=== PATIENT | female | born 1995 | race African-American/Black ===

== ENCOUNTER 2020-08-31 01:13 | Emergency (ER) | payer OTHER ==
[2020-08-31] MEDS ORDERED: MOTRIN600 MG PO (02:03)
== END 2020-08-31 02:20 | disposition home or self-care (01) ==
LOC: FER 01:13
DX: S71.111A Laceration without foreign body, right thigh, initial encounter (principal); W26.0XXA Contact with knife, initial encounter; Y92.009 Unspecified place in unspecified non-institutional (private) residence as the place of occurrence of the external cause

== ENCOUNTER 2020-11-06 15:28 | Emergency (ER) | payer OTHER ==
[~2020-11-06 15:28] MED LIST: MOTRIN600 MG PO
[2020-11-06 17:03] LABS: BILIRUBIN NEGATIVE (NEGATIVE); BLOOD NEGATIVE Ery/uL (NEGATIVE); CLARITY CLEAR (CLEAR); COLOR YELLOW (YELLOW); GLUCOSE (U) NORMAL (NORMAL); LEUKOCYTES TRACE Leu/uL (NEGATIVE); NITRITE NEGATIVE (NEGATIVE); PROTEIN NEGATIVE (NEGATIVE); UROBILINOGEN 0.2 mg/dL (0.2-1.0); pH 7.5 (5.0-9.0)
[2020-11-06 17:34] LABS: BACTERIA 1+; MUCOUS TRACE
[2020-11-06 18:07] LABS: BASOPHIL 0.4 % (0-2); EOSINOPHIL 0.4 % (0-5); HCT 36.3 % (37.0-47.0); LYMPHOCYTE 17.6 % (15-48); MCH 27.7 pg (25.0-31.0); MCHC 33.1 g/dL (32.0-36.0); MCV 83.8 fL (78.0-100.0); MONOCYTE 5.2 % (0-12); MPV 10.6 fL (6.0-9.5); NRBC 0; PLT 331 K/uL (150-400); RBC 4.33 M/uL (4.20-5.40); RDW 13.7 % (11.5-14.0); WBC 11.2 K/uL (4.0-10.5)
[2020-11-06 18:18] LABS: ALBUMIN 3.9 g/dL (3.4-5.0); BILIRUBIN - TOTAL 0.3 mg/dL (0.2-1.0); BUN/CREAT RATIO (CALC) 16.4 RATIO; CREATININE 0.73 mg/dL (0.51-0.95); GLOBULIN (CALCULATION) 3.9 g/dL; TOTAL PROTEIN 7.8 g/dL (6.4-8.2)
[2020-11-06] MEDS ORDERED: NAPROXEN500 MG PO (22:49)
[2020-11-06] MEDS ORDERED: VIBRAMYCIN100 MG PO (22:49)
[2020-11-06] MEDS ORDERED: ZOFRAN4 M1 PO (22:49)
[2020-11-09 19:08] LABS: CHLAMYDIA TRACHOMATIS, NAA Negative (Negative); NEISSERIA GONORRHOEAE, NAA Positive (Negative)
== END 2020-11-06 23:10 | disposition home or self-care (01) ==
LOC: FER 15:28
PROVIDERS: Emergency Medicine; Nurse Practitioner Family
DX: A54.9 Gonococcal infection, unspecified (principal); N39.0 Urinary tract infection, site not specified; F17.290 Nicotine dependence, other tobacco product, uncomplicated
CPT/HCPCS: 36415; 80053; 81001; 85025; 87491; 87591; 96372; J0696; J1885; J2405; J7030; Q9967